=== PATIENT | female | born 1985 | race African-American/Black ===

== ENCOUNTER 2017-07-25 17:53 | Emergency (ER) | payer SELFPAY ==
[~2017-07-25] VITALS: Ht 157.5 cm; Wt 97.0 kg
[2017-07-25 18:06] VITALS: Ht 157.5 cm; Wt 97.0 kg
[2017-07-25] MEDS ORDERED: FLUC150T17 PO (18:29)
[2017-07-25] MEDS ORDERED: OMEP40CA6 PO (18:29)
--- NOTE | 2017-07-25 18:32 | ERD ---
ER Documentation Chief Complaint Date/Time DATE: 07/25/17 TIME: 18:31 Chief Complaint Complains of a urine problem HPI This 31-year-old female complains of a irritated external vagina and vaginal creases the past 3 weeks. She has tried [id number] Lotrimin with no relief. She is also complaining of some reflux after eating meals for the past 2 weeks. No abdominal pain no vomiting no diarrhea. No dysuria no back pain pelvic pain. No vaginal discharge. ROS All systems reviewed and are negative except as per history of present illness. Medications Home Meds Active Scripts Fluconazole* (Diflucan*) 150 Mg Tablet, 150 MG PO ONCE, #2 TAB 1 po now and 1 po in 7 days Prov:VIPUL NGUYEN DO 07/25/17 Omeprazole* (Omeprazole*) 40 Mg Capsule.dr, 40 MG PO DAILY, #14 CAP Prov:VIPUL NGUYEN DO 07/25/17 Allergies Allergies: Coded Allergies: No Known Allergy (Unverified , 07/25/17) PMhx/Soc Medical and Surgical Hx: pt denies Medical Hx, pt denies Surgical Hx Hx Alcohol Use: No Hx Substance Use: No Hx Tobacco Use: No Smoking Status: Never smoker FmHx Family History: No coronary disease Physical Exam Vitals Vital Signs Date Time Temp Pulse Resp B/P Pulse Ox O2 Delivery O2 Flow Rate FiO2 07/25/17 18:06 99.2 109 20 150/68 98 Physical Exam Const: Well-developed, well-nourished Head: Atraumatic, normocephalic Eyes: Normal Conjunctiva, PERRLA, EOMI, normal sclera, no nystagmus ENT: Normal External Ears, Nose and Mouth, moist mucus membranes. Neck: Full range of motion. No meningismus, no lymphadenopathy. Resp: Clear to auscultation bilaterally, no wheezing, rhonchi, rales Cardio: Regular rate and rhythm, no murmurs, S1 S2 present Abd: Soft, non tender x 4, non distended. Normal bowel sounds, no guarding or rebound, no pulsitile abdominal masses or bruits in her labia consistent with candidiasis there are also some erythema candidiasis type of rash to groin Skin: No petechiae or rashes, no ecchymosis , no maculopapular rash Back: No midline or flank tenderness Ext: No cyanosis, or edema, FROM x 4, normal inspection, neurovascularly intact x 4 Neur: Awake and alert, STR 5/5 x 4, sensation intact x 4, no focal findings, cerebellum intact Psych: Normal Mood and Affect Procedures/MDM We will treat with Diflucan 2 We will try apple cider vinegar and will provide some omeprazole but does not work for her reflux. Discussed diet and lifestyle changes Departure Diagnosis: Primary Impression: GERD (gastroesophageal reflux disease) Esophagitis presence: esophagitis presence not specified Qualified Code: K21.9 - Gastroesophageal reflux disease, esophagitis presence not specified Additional Impression: Vulvovaginitis sylvie albicans Condition: Stable Patient Instructions: Gerd (Adult), Vaginitis, Sylvie VIPUL NGUYEN DO Jul 25, 2017 18:32
== END 2017-07-25 18:54 | disposition home or self-care (01) ==
LOC: FTE 17:53
DX: K21.9 Gastro-esophageal reflux disease without esophagitis (principal); B37.3 Candidiasis of vulva and vagina
CPT/HCPCS: 99283